=== PATIENT | female | born 1935 | race Caucasian/White ===

== ENCOUNTER 2019-05-29 15:08 | Inpatient (IN) ==
[2019-05-29 16:39] LABS: ALLEN TEST YES; BE 11.3 mmoll (-3.0-3.0); BLOOD TYPE ARTERIAL; HCO3-(ACT) 33.5 mmoll (20.0-26.0); METHB 1.2 % (0.0-1.5); O2(CT) 14.9 mL/dL (15.0-23.0); SAMPLE BLOOD; SAO2 89.5 % (95.0-100.0); THB 12.3 g/dL (11.5-17.4); pH(98.6) 7.35 (7.35-7.45)
[2019-05-29 16:41] LABS: PCO2(98.6) 72 mmHg (35-45)
[2019-05-29 16:42] LABS: MODALITY CANNULA; O2HB 86.4 % (95.0-99.0); PO2(98.6) 49 mmHg (60-100)
[2019-05-29] MEDS ORDERED: TYLENOL PO PRN (17:16)
[2019-05-29] MEDS ORDERED: SALINE LOCK IV FLUID XX ONE (17:16)
[2019-05-29] MEDS ORDERED: NORCO-10 PO PRN ×2 (17:18→17:48)
[2019-05-29] MEDS ORDERED: DUONEB (A & A) INH PRN (17:28)
[2019-05-29 17:37] LABS: BASO# 0.06 X1000 (0.0-0.2); BASO% 0.5 % (0.0-0.8); EOS# 0.21 X1000 (0.0-0.7); EOS% 1.6 % (0.0-10.0); HEMATOCRIT 40.2 % (37.0-47.0); HEMOGLOBIN 12.3 g/dL (12.0-16.0); IMM GRAN# 0.03 X1000 (0.0-0.04); IMM GRAN% 0.2 % (0.0-0.5); LYMPH# 0.86 X1000 (1.2-3.4); LYMPH% 6.5 % (20.5-51.1); MCH 29.4 PG (27-31); MCHC 30.6 g/dL (33-37); MCV 95.9 FL (81-99); MONO% 8.3 % (1.7-9.3); MPV 10.2 FL (7.4-10.4); NEUT# 11.06 X1000 (1.4-6.5); NEUT% 82.9 % (42.2-75.2); PLT 178 X1000 (130-400); RBC 4.19 XMIL (4.2-5.4); RDW 12.4 % (11.5-14.5); WBC 13.32 X1000 (4.8-10.8)
--- NOTE | 2019-05-29 17:40 | HISTORY AND PHYSICAL ---
She has recently lost her . He about a month ago. She has had a hard time. She states that for the last week or so she feels a little more short of breath, increased dyspnea with exertion. She has had some more swelling in her lower extremities. She denies chest pain or palpitation. Denies any fever, chills. She said she choked on some cornbread a couple days ago and since that time, feels like she is having more wheezing. She has underlying COPD and has some O2 at home. She was seen at Dr. Quintana's office and her O2 saturations were in the mid 70s and so admitting now for hypoxemia. PAST MEDICAL HISTORY: 1. COPD with chronic hypoxemia diagnosed back in 2004. She had a long stay in [facility]. At that time was vent dependent and had pneumonia. 2. Diabetes mellitus type 2. 3. Obesity. 4. 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 5. Sleep apnea on CPAP. 6. History of hypothyroidism, took PTU and had ablation procedure with radioactive iodine has done well. She is on thyroid supplement now. 7. Hypertension. 8. Status post cholecystectomy. 9. Status post hysterectomy. 10. Dyslipidemia. SOCIAL HISTORY: Recently lost her . Prior smoker years ago. She has not smoked for almost 20 years now. No history of alcohol use. FAMILY HISTORY: Positive for heart failure and diabetes mellitus. REVIEW OF SYSTEMS: General: No weight gain or loss. No fever or chills she knows of. HEENT: No change in visual or hearing acuity. Respiratory: Increased dyspnea on exertion and she said she thinks she had some paroxysmal nocturnal dyspnea the last couple nights, increased orthopnea, increased pedal edema. Cardiovascular: No chest pain or tachy palpitation. GI/: No gross hematuria, dysuria. Musculoskeletal/Neurologic: No focal complaints just general weakness. Endocrinologic hematologic: No significant history. PHYSICAL EXAM: Today temperature 98 degrees, pulse 80, respirations 19, blood pressure 131/73. Pupils are equal, round. LUNGS: Clear in all lung bocanegra. CARDIOVASCULAR: Regular rhythm and rate without murmur or S3. ABDOMEN: Soft. SKIN: Warm and dry. O2 saturation was 89%. This was on 5 L per nasal cannula. Weight 179 pounds, height 5 feet 3 inches. Pupils are equal and round. No distended neck veins appreciated. She is on nasal cannula. Conjunctiva pink. Sclerae clear. NECK: Was supple. No adenopathy cervical or supraclavicular. LUNGS: Are clear anterolateral and posterior. CARDIOVASCULAR: Regular rhythm and rate without murmur or S3. ABDOMEN: Soft, nondistended. No hepatosplenomegaly appreciated. Pedal edema but she has socks on both legs but pedal edema by report. Carotid, radial, femoral, pedal pulses 2+ and symmetrical. LAB: Blood gas, pH is 7.35, pCO2 72, PO2 is 49, O2 saturation was 89%. This is on nasal cannula 38%. HOME MEDICATIONS: She takes Xanax 0.5 mg at bedtime, calcium 500 mg p.o. daily, vitamin D3 2000 units daily, Lanoxin 250 mcg p.o. q.a.m., Cardizem CD 240 mg daily, Advair 250/50 one puff b.i.d., Lasix 80 mg p.o. daily and hydrocodone or Lortab 10 mg b.i.d. p.r.n., melatonin theanine tablet 9 mg at bedtime, multivitamin 1 a day, MiraLAX 1 packet every other day and Co-Q10 1 tablet daily. Rest of lab is pending. ASSESSMENT AND PLAN: 1. Underlying chronic obstructive pulmonary disease, history of chronic hypoxemia, presents now with hypercapnic hypoxemic respiratory failure. Increase her FiO2. She has had increased swelling in her lower extremities. We will put her on a monitor. Check an EKG. We will check cardiac enzymes make sure is not underlying cardiac ischemia. She has not complained of chest pain. She has recently lost her and quite a bit of stress. I think we will look at an echocardiogram to look at her left ventricular function and watch her blood pressure and afterload pretty carefully. Will check her thyroid functions as well, has a distant history of hyperthyroidism and it is very possible she could have hypothyroidism at the present time. Will check a digoxin level. 2. History of osteoarthritis. 3. History of sleep apnea. 4. Diabetes mellitus type 2. Will check pattern sugars. 5. History of hypertension. 6. I did note that she has had a history of an atrial myxoma, which they did not remove, course will check another echocardiogram at this time. cc: Dio Wall MD
[2019-05-29 17:45] LABS: AGAP 13; ALB/GLOB RATIO 1.4; ALBUMIN 4.1 g/dL (3.5-5.0); ALKALINE PHOSPHATASE 90 U/L (32-104); BUN 12 mg/dL (8-22); CALCIUM 9.2 mg/dL (8.8-10.2); CHLORIDE 92 mmol/L (98-107); COSMO 274; CREATININE 0.7 mg/dL (0.5-0.9); ESTIMATED GFR > 60; GLUCOSE 100 mg/dL (70-104); GOT 23 U/L (10-30); GPT 17 U/L (10-36); POTASSIUM 4.4 mmol/L (3.5-5.1); SODIUM 137 mmol/L (136-145); TCO2 32 mmol/L (25-35); TOTAL BILIRUBIN 0.38 mg/dL (0.20-1.00)
[2019-05-29] MEDS: DUONEB (A & A) INH SCH ×2 (19:25→23:02)
[2019-05-29] MEDS: ADVAIR 250/50 DISKUS INH SCH (19:25)
--- NOTE | 2019-05-29 21:32 | Diag Imaging Result Doc PS360 ---
EXAM: CHEST-2 VIEWS 05/29/2019 HISTORY: resp. failure TECHNIQUE: AP and lateral chest COMMENT: The inspiration is less optimal than on 11/08/2018. The left heart border is obscured and there is increased atelectatic appearing opacity in the lingula and right lower lobe. IMPRESSION: Atelectasis versus pneumonia in the lingula and right lower lobe. Electronically signed by Troy Kim 05/29/2019 9:30 PM
[2019-05-29] MEDS: ROCEPHIN 1 GM in NS 50 ML IV SCH (21:36)
[2019-05-29] MEDS: MUCINEX PO SCH (21:37)
[2019-05-29] MEDS: XANAX PO SCH (21:38)
[2019-05-29] MEDS: LASIX IV SCH (21:38)
[2019-05-29] MEDS: MELATONIN PO SCH (21:38)
[2019-05-29 23:03] LABS: URINE SOURCE CATH
[2019-05-29 23:28] LABS: BILIRUBIN URINE NEGATIVE (NEGATIVE); BLOOD URINE NEGATIVE (NEGATIVE); COLOR YELLOW; GLUCOSE URINE NEGATIVE (NEGATIVE); KETONE URINE NEGATIVE (NEGATIVE); LEUKOCYTES URINE NEGATIVE (NEGATIVE); NITRITE URINE NEGATIVE (NEGATIVE); PROTEIN URINE TRACE mg/dL (NEGATIVE); TURBIDITY URINE CLEAR (CLEAR); UROBILINOGEN URINE NORMAL (NORMAL)
[2019-05-29 23:30] LABS: UR EPITHELIAL CELLS <10 /HPF (<10); URINE BACTERIA NEGATIVE /HPF; URINE RBC <10 /HPF (<10); URINE WBC <10 /HPF (<10)
[2019-05-30] MEDS: DUONEB (A & A) INH SCH ×6 (03:39→23:26)
[2019-05-30] MEDS: LASIX IV SCH ×2 (04:55→16:21)
[2019-05-30 05:17] LABS: ALLEN TEST YES; BE 14.5 mmoll (-3.0-3.0); BLOOD TYPE ARTERIAL; METHB 0.5 % (0.0-1.5); MODALITY CANNULA; O2(CT) 14.3 mL/dL (15.0-23.0); SAMPLE BLOOD; SAO2 90.5 % (95.0-100.0); THB 11.6 g/dL (11.5-17.4); pH(98.6) 7.39 (7.35-7.45)
[2019-05-30 05:20] LABS: PCO2(98.6) 70 mmHg (35-45); PO2(98.6) 49 mmHg (60-100)
[2019-05-30 05:21] LABS: O2HB 87.9 % (95.0-99.0)
[2019-05-30] MEDS: PROTONIX PO SCH (06:05)
[2019-05-30 07:06] LABS: AGAP 12; BUN 11 mg/dL (8-22); CHLORIDE 90 mmol/L (98-107); COSMO 278; CREATININE 0.7 mg/dL (0.5-0.9); ESTIMATED GFR > 60; GLUCOSE 114 mg/dL (70-104); POTASSIUM 3.9 mmol/L (3.5-5.1); SODIUM 139 mmol/L (136-145); TCO2 37 mmol/L (25-35)
[2019-05-30 07:07] LABS: ALB/GLOB RATIO 1.5; ALBUMIN 3.8 g/dL (3.5-5.0); ALKALINE PHOSPHATASE 80 U/L (32-104); CALCIUM 8.8 mg/dL (8.8-10.2); GOT 19 U/L (10-30); GPT 14 U/L (10-36); TOTAL BILIRUBIN 0.38 mg/dL (0.20-1.00); TOTAL PROTEIN 6.3 g/dL (6.3-8.3)
[2019-05-30 08:02] LABS: FREE T4 0.97 ng/dL (0.93-1.70)
[2019-05-30] MEDS: ADVAIR 250/50 DISKUS INH SCH ×2 (08:11→19:41)
[2019-05-30 08:14] LABS: BASO# 0.06 X1000 (0.0-0.2); BASO% 0.7 % (0.0-0.8); EOS# 0.34 X1000 (0.0-0.7); EOS% 3.8 % (0.0-10.0); HEMATOCRIT 37.3 % (37.0-47.0); HEMOGLOBIN 11.5 g/dL (12.0-16.0); IMM GRAN# 0.02 X1000 (0.0-0.04); IMM GRAN% 0.2 % (0.0-0.5); LYMPH# 1.07 X1000 (1.2-3.4); LYMPH% 11.9 % (20.5-51.1); MCH 29.7 PG (27-31); MCHC 30.8 g/dL (33-37); MCV 96.4 FL (81-99); MONO# 1.04 X1000 (0.11-0.59); MONO% 11.6 % (1.7-9.3); MPV 10.2 FL (7.4-10.4); NEUT# 6.47 X1000 (1.4-6.5); NEUT% 71.8 % (42.2-75.2); PLT 167 X1000 (130-400); RBC 3.87 XMIL (4.2-5.4); RDW 12.1 % (11.5-14.5)
[2019-05-30] MEDS: CENTRUM SILVER PO SCH (09:42)
[2019-05-30] MEDS: CARDIZEM CD PO SCH (09:42)
[2019-05-30] MEDS: VITAMIN D PO SCH (09:42)
[2019-05-30] MEDS: MUCINEX PO SCH ×2 (09:43→22:19)
[2019-05-30] MEDS: COENZYME Q10 PO SCH (09:43)
[2019-05-30] MEDS: LANOXIN PO SCH (09:43)
--- NOTE | 2019-05-30 10:53 | ECHO REPORT ---
ORDER DATE: 05/29/2019 INTERPRETING PHYSICIAN: Dr. Mario Peck. ECHOCARDIOGRAPHIC MEASUREMENTS: 1. Interventricular septum 1.1. 2. Left ventricular posterior wall 1.1. 3. Diastolic diameter 5.1. 4. Left atrium 5.9. 5. Aorta 3.4. SUMMARY OF THE 2-DIMENSIONAL IMAGIN. There is biatrial enlargement. 2. Right atrium, there is a 2 cm mass noted towards the inflow of the inferior vena cava. Cannot rule out a myxoma. Would recommend transesophageal echocardiogram. 3. Aortic valve leaflets are trileaflet, sclerosed. 4. Mitral valve was normal. There is mitral annular calcification. 5. Tricuspid valve was normal. There is iomo-ey-mpyheujt mitral regurgitation. There is mild tricuspid regurgitation. Peak velocity across the tricuspid valve was 3 m/sec. 6. Pulmonary artery systolic pressure of 50 mmHg. 7. Peak velocity across the aortic valve was less than 2 m/sec. There is no aortic stenosis. 8. There is no pericardial effusion. 9. Normal left ventricular cavity size EF 65%, atrial fibrillation noted. cc: MD Dio Gonzalez MD MTDD
[2019-05-30] MEDS: MIRALAX PO SCH (12:50)
[2019-05-30] MEDS ORDERED: MILK OF MAGNESIA PO ONE (15:50)
[2019-05-30] MEDS ORDERED: DULCOLAX PR PRN (15:50)
--- NOTE | 2019-05-30 16:15 | PROGRESS NOTE ---
DATE: 05/30/2019 SUBJECTIVE: Ms. Sauceda is feeling better. Feels like her breathing is doing better and more comfortable. She has not had a bowel movement. OBJECTIVE: Vital Signs: Temperature 97.9 degrees, pulse 69, respirations 19, blood pressure 115/60. Pupils are equal and round. Lungs: Clear in all lung bocanegra. Cardiovascular: Regular rhythm and rate without murmur or S3. Urine output is 1600 mL. DIAGNOSTIC DATA: She had an echocardiogram done. In the right atrium, there is a 2 cm mass noted towards inflow of the inferior vena cava and appears to be consistent with a myxoma. This has been seen before. Mitral annular calcification and she appears to have normal left ventricular size ejection fraction 65%. So chest x-ray from yesterday, atelectasis versus pneumonia and lingular in the right lower lobe. ASSESSMENT AND PLAN: 1. We will get another chest x-ray tomorrow. Volume status looks good. I do not see any sign of infection. 2. She has an atrial myxoma. Aware. No significant valvular or left ventricular dysfunction. 3. History of sleep apnea. 4. Diabetes mellitus type 2. 5. Hypertension, CURRENT ORDERS: I do not see any change. She is complaining of constipation so I will get her something for her bowels and we will check electrolytes and renal function tomorrow. cc: Dio Wall MD
[2019-05-30] MEDS: ROCEPHIN 1 GM in NS 50 ML IV SCH (16:30)
--- NOTE | 2019-05-30 19:33 | PULMONOLOGY CONSULTATION ---
DATE: 05/30/2019 REASON FOR CONSULTATION: Respiratory failure. HISTORY OF PRESENT ILLNESS: Ms. Sauceda is an 83-year-old white female with COPD, chronic hypoxemic respiratory failure, and other comorbidities outlined below, who reports the day before admission she was eating cornbread and had a choking with aspiration event. The patient reports she had multiple episodes of coughing, which produced food particles. She was evaluated the following day and her oxygen saturation was in the 70s despite supplemental oxygen. PAST MEDICAL HISTORY/PROBLEM LIST: 1. Chronic obstructive pulmonary disease. 2. Chronic hypoxemic respiratory failure. 3. Atrial myxoma without surgical intervention. 4. Obesity. 5. Diabetes mellitus. 6. History of hyperthyroidism following radioactive iodine treatment. 7. Status post cholecystectomy. 8. Status post hysterectomy. 9. Osteoarthritis. 10. Status post appendectomy. 11. Status post x2. 12. History of skin cancer. SOCIAL HISTORY: Prior tobacco use. She is a and has recently lost her . FAMILY HISTORY: Noncontributory to current presentation. REVIEW OF SYSTEMS: Notable for increased shortness of breath, increased cough with sputum production, increased peripheral edema. PHYSICAL EXAMINATION: General: Reveals a well-developed, well-nourished female, who appears her stated age, in no distress. Vital signs: BP 115/60, heart rate 69, respiratory rate 19, oxygen saturation 98% on 4 L per nasal cannula. HEENT: Pupils are equal and reactive. Oropharynx appears clear. Neck: Supple. Chest: Reveals crackles in both lung bases. Cardiac Exam: S1- S2. Abdomen: Soft. Extremities: Reveal 1 to 2+ peripheral edema. LABORATORIES: Arterial blood gas on 4.5 L reveals pH 7.39, pCO2 of 70, PO2 of 49. Chest x-ray reveals infiltrates in the lingula and the right lower lobe. IMPRESSION: An 83-year-old with chronic obstructive pulmonary disease who presents with 1. Aspiration pneumonia. 2. Acute hypoxemic respiratory failure. 3. Chronic hypercapnic respiratory failure. 4. Peripheral edema. RECOMMENDATIONS: 1. Continue current antibiotics. 2. Continue bronchial hygiene as you are doing. 3. Agree with echocardiogram evaluation given history of non-resected atrial myxoma. 4. Consider diuresis with lower extremity edema. 5. Prognosis is guarded, but appears to be improving. cc: MD Dio Solomon MD [facility]
[2019-05-30] MEDS: MELATONIN PO SCH (22:19)
[2019-05-31] MEDS: XANAX PO SCH ×2 (03:16→20:54)
[2019-05-31] MEDS: DUONEB (A & A) INH SCH ×6 (03:34→23:15)
[2019-05-31] MEDS: LASIX IV SCH ×2 (04:57→18:23)
[2019-05-31] MEDS: PROTONIX PO SCH (06:00)
[2019-05-31 06:09] LABS: BASO% 0.5 % (0.0-0.8); EOS% 2.5 % (0.0-10.0); HEMATOCRIT 38.6 % (37.0-47.0); HEMOGLOBIN 12.4 g/dL (12.0-16.0); IMM GRAN% 0.3 % (0.0-0.5); LYMPH% 15.7 % (20.5-51.1); MCHC 32.1 g/dL (33-37); MCV 93.5 FL (81-99); MONO% 14.2 % (1.7-9.3); MPV 10.3 FL (7.4-10.4); NEUT% 66.8 % (42.2-75.2); PLT 179 X1000 (130-400); RBC 4.13 XMIL (4.2-5.4); RDW 12.3 % (11.5-14.5); WBC 9.89 X1000 (4.8-10.8)
[2019-05-31 06:10] LABS: BASO# 0.05 X1000 (0.0-0.2); EOS# 0.25 X1000 (0.0-0.7); IMM GRAN# 0.03 X1000 (0.0-0.04); LYMPH# 1.55 X1000 (1.2-3.4); NEUT# 6.61 X1000 (1.4-6.5)
[2019-05-31 06:13] LABS: BE 17.8 mmoll (-3.0-3.0); BLOOD TYPE ARTERIAL; HCO3-(ACT) 38.6 mmoll (20.0-26.0); METHB 1.3 % (0.0-1.5); O2(CT) 16.2 mL/dL (15.0-23.0); PO2(98.6) 54 mmHg (60-100); SAMPLE BLOOD; SAO2 93.3 % (95.0-100.0); THB 12.9 g/dL (11.5-17.4); pH(98.6) 7.45 (7.35-7.45)
[2019-05-31 06:14] LABS: ALLEN TEST YES
[2019-05-31 06:18] LABS: MODALITY CANNULA; O2HB 89.6 % (95.0-99.0); PCO2(98.6) 65 mmHg (35-45)
[2019-05-31 06:30] LABS: ESTIMATED GFR > 60
[2019-05-31 06:39] LABS: AGAP 10; BUN 14 mg/dL (8-22); CALCIUM 9.5 mg/dL (8.8-10.2); CHLORIDE 86 mmol/L (98-107); COSMO 269; CREATININE 0.8 mg/dL (0.5-0.9); GLUCOSE 108 mg/dL (70-104); MAGNESIUM 1.8 mg/dL (1.5-2.7); POTASSIUM 4.1 mmol/L (3.5-5.1); SODIUM 134 mmol/L (136-145); TCO2 38 mmol/L (25-35)
[2019-05-31] MEDS: ADVAIR 250/50 DISKUS INH SCH ×2 (07:16→19:43)
[2019-05-31] MEDS ORDERED: MIRALAX PO SCH (09:00)
[2019-05-31] MEDS ORDERED: SODIUM CHLORIDE 0.9% 10 ML ONE (09:35)
[2019-05-31] MEDS: CARDIZEM CD PO SCH (09:52)
[2019-05-31] MEDS: VITAMIN D PO SCH (09:52)
[2019-05-31] MEDS: COENZYME Q10 PO SCH (09:52)
[2019-05-31] MEDS: MUCINEX PO SCH ×2 (09:52→20:54)
[2019-05-31] MEDS: LANOXIN PO SCH (09:52)
[2019-05-31] MEDS: CENTRUM SILVER PO SCH (09:52)
--- NOTE | 2019-05-31 10:51 | Diag Imaging Result Doc PS360 ---
EXAM: CHEST-2 VIEWS 05/31/2019 HISTORY: hypoxemia TECHNIQUE: AP and sitting lateral COMMENT: There is marked kyphosis. There is a small amount of pleural fluid bilaterally which is demonstrated primarily on the lateral view. There is cardiomegaly. There are calcified nodes on the left and a calcified granuloma laterally in the lingula. The left base is clearer than on the previous examination of 05/29/2019. There is a small focus of platelike atelectasis in the right costophrenic angle. The lungs are generally better expanded. IMPRESSION: Cardiomegaly. Bilateral pleural effusions. Improved basilar atelectasis. Electronically signed by Troy Kim 05/31/2019 10:49 AM
--- NOTE | 2019-05-31 13:57 | PROGRESS NOTE ---
DATE: 05/31/2019 SUBJECTIVE: Ms. Sauceda was getting her hair done. She is breathing better. She feels more comfortable. OBJECTIVE: Temperature 98.1 degrees, pulse 89, respirations 21, blood pressure 108/40. Pupils are equal and round. Lungs are clear in all lung bocanegra. Cardiovascular Examination: Regular rhythm and rate without murmur or S3. Urine output is 6200 mL. Blood sugar 118, 104, 115. Chest x-ray, cardiomegaly, bilateral pleural effusions, improved bibasilar atelectasis. ASSESSMENT AND PLAN: 1. Aspiration pneumonia suspected. She has acute hypoxemic respiratory failure, chronic hypercapnic respiratory failure, peripheral edema. Continue present antibiotics. Continue bronchial hygiene. She is doing better. 2. Echocardiogram evaluation. 3. A history of non-resected atrial myxoma. 4. Diuresis, lower extremity edema. 5. Prognosis is guarded. Appears to be improving. She looks much better today. I think her gas exchange is improved. Continue present therapy. cc: Dio Wall MD
[2019-05-31] MEDS: ROCEPHIN 1 GM in NS 50 ML IV SCH (18:23)
[2019-05-31] MEDS: MELATONIN PO SCH (20:54)
[2019-06-01] MEDS: DUONEB (A & A) INH SCH ×6 (03:37→23:21)
[2019-06-01] MEDS: LASIX IV SCH ×2 (04:36→16:41)
[2019-06-01] MEDS: PROTONIX PO SCH (06:36)
[2019-06-01] MEDS: ADVAIR 250/50 DISKUS INH SCH ×2 (07:06→19:51)
--- NOTE | 2019-06-01 09:14 | PROGRESS NOTE ---
DATE: 06/01/2019 SUBJECTIVE: Ms. Sauceda is breathing better. She feels better overall. She still has her Mckenzie catheter in. She is coughing but the cough seems to be loose. OBJECTIVE: Temperature 97.4 degrees, pulse 92, respirations 18, blood pressure 128/62. Pupils are equal and round. Lungs are clear in all lung bocanegra. Cardiovascular Examination: Regular rhythm and rate without murmur or S3. Urine output is 3900 mL. Blood sugar 115, 125, 109. ASSESSMENT AND PLAN: 1. Aspiration pneumonia suspected with some pulmonary venous hypertension, acute hypoxemic respiratory failure, chronic hypercapnic respiratory failure. Continue present antibiotics, incentive spirometry. She is on DuoNebs, fluticasone, steroid inhaler. We have her on ceftriaxone 1 g every 24 hours. 2. Echocardiogram was done on the . Pulmonary arterial pressure appeared about 50 mmHg. Valves appeared normal and left ventricular ejection fraction of 65%. 3. Please note on my last note, she does not have an atrial myxoma. That was put in error. 4. Diuresis. She had some lower extremity edema. She has some stockings in place. She is improving. I am going to take her Mckenzie catheter out. REVIEW OF HER ORDERS: I do not see any change at this point. There is a possibility that she could go home tomorrow. We will see what Dr. Quintana says. She has no growth from her blood cultures. Sputum culture is negative. White count from yesterday 9890, hematocrit 38, platelet count 179,000. Sodium 134, potassium 4.1, chloride 86, BUN 14, creatinine 0.8. Blood sugars 115, 125, 135, 109. cc: Dio Wall MD
[2019-06-01] MEDS: MUCINEX PO SCH ×2 (09:35→21:01)
[2019-06-01] MEDS: MIRALAX PO SCH (09:35)
[2019-06-01] MEDS: VITAMIN D PO SCH (09:35)
[2019-06-01] MEDS: COENZYME Q10 PO SCH (09:35)
[2019-06-01] MEDS: CARDIZEM CD PO SCH (09:36)
[2019-06-01] MEDS: LANOXIN PO SCH (09:36)
[2019-06-01] MEDS: CENTRUM SILVER PO SCH (09:36)
[2019-06-01] MEDS: ROCEPHIN 1 GM in NS 50 ML IV SCH (16:41)
[2019-06-01] MEDS: MELATONIN PO SCH (21:01)
[2019-06-01] MEDS: XANAX PO SCH (21:02)
--- NOTE | 2019-06-01 21:59 | PULMONOLOGY PROGRESS NOTE ---
DATE: 06/01/2019 SUBJECTIVE: The patient is awake, alert, and sitting in a chair. She reports she has had a good day. She has had no significant dyspnea today. She reports some lower extremity edema while sitting upright in the chair. OBJECTIVE: Vital Signs: Blood pressure 125/80, heart rate 79, respiratory rate 18, oxygen saturation 100% on nasal cannula. HEENT: Pupils are equal and reactive. Oropharynx appears clear. Neck: Supple. Chest: Occasional wheeze bilaterally with bilateral rhonchi. Cardiac: S1-S2. Abdomen: Obese and soft. Extremities: Trace to 1+ peripheral edema. LABORATORIES: No new laboratory data. IMPRESSION: An 83-year-old with: 1. Aspiration pneumonia. 2. Acute on chronic hypoxemic respiratory failure. 3. Chronic hypercapnic respiratory failure. 4. Chronic lower extremity edema. DISCUSSION: An 83-year-old with problems outlined above. She continues to improve. If she looks well on Wednesday morning, I believe she could be discharged home. PLAN: 1. Continue with current antibiotics. 2. Wean oxygen as tolerated. 3. Anticipate discharge home soon. cc: MD Dio Solomon MD
[2019-06-02] MEDS: DUONEB (A & A) INH SCH ×2 (03:06→08:00)
[2019-06-02] MEDS: LASIX IV SCH (04:18)
[2019-06-02] MEDS: PROTONIX PO SCH (06:20)
[2019-06-02 07:34] VITALS: BP 110/63
--- NOTE | 2019-06-02 07:35 | Diag Imaging Result Doc PS360 ---
CHEST-2 VIEWS - 06/02/2019 INDICATION: abnormal exam COMPARISON: 05/31/2019 FINDINGS: There is a trace right and small left pleural effusion new from prior. There is slight worsening left lower lobe infiltrate. Stable cardiomegaly. IMPRESSION: New pleural effusions. Slight worsening left lower lobe infiltrate. Stable cardiomegaly. Electronically signed by Jas Lovelace 06/02/2019 7:33 AM
[2019-06-02] MEDS: ADVAIR 250/50 DISKUS INH SCH (08:01)
--- NOTE | 2019-06-02 09:18 | DISCHARGE SUMMARY ---
ADMISSION DATE: 05/29/2019 DISCHARGE DATE: 06/02/2019 HISTORY: This is an 83-year-old. Her about a month ago and she came in and saw Dr. Quintana was complaining of a little more short of breath, more dyspnea on exertion, had some swelling in her lower extremities. Denied any chest pain or palpitation. Denied any fever or chills. She had an episode where she choked on some cornbread and felt like she had a little bit aspiration and may have just tipped her over. She had high hypoxia. O2 saturations were and they were in the high 70s in his office. PAST MEDICAL HISTORY: 1. Chronic obstructive pulmonary disease, chronic hypoxemic, diagnosed in 2004 long stay at [facility]. 2. Diabetes mellitus type 2. 3. Obesity. 4. History of atrial myxoma a high surgical risk. We repeated an echocardiogram, which she is here. She still has the atrial myxoma. 5. Sleep apnea on CPAP. 6. History of hypothyroidism, took PTU and had ablation procedure appears to be euthyroid. 7. Hypertension. 8. Status post cholecystectomy. 9. Status post hysterectomy. 10. Dyslipidemia. ADMISSION DIAGNOSES: 1. Underlying chronic obstructive pulmonary disease, history of chronic hypoxemia. Suspect some aspiration and had some hypercapnic hypoxemic respiratory failure, put on supplementary O2 and we treated empirically with some antibiotics and bronchodilators. Also had some pulmonary venous hypertension so I have diuresed her some and she seemed to improve. 2. History of osteoarthritis. 3. History of sleep apnea. 4. Diabetes mellitus type 2. 5. History of hypertension. 6. History of atrial myxoma, which is inoperable. DISPOSITION: We will discharge her home. She takes Xanax 0.5 mg at bedtime. I have her on guaifenesin ER 1200 mg q.12, vitamin D 2000 units a day, digoxin 250 mcg p.o. daily, Cardizem CD 240 mg daily, fluticasone salmeterol 1 puff b.i.d. I will put her on Lasix 40 mg p.o. q.a.m., melatonin 9 mg at bedtime, multivitamin 1 a day, Protonix 40 mg a day, MiraLAX 17 g. I think she takes that every other day, and Co enzyme 100 mg daily. FOLLOWUP: I will see her back in my office in 2 weeks. She will go back to 2 L O2. She also has hydrocodone she can take for pain 10 mg p.o. b.i.d. p.r.n. cc: Dio Wall MD
[2019-06-02] MEDS: CARDIZEM CD PO SCH (09:45)
[2019-06-02] MEDS: CENTRUM SILVER PO SCH (09:45)
[2019-06-02] MEDS: VITAMIN D PO SCH (09:45)
[2019-06-02] MEDS: LANOXIN PO SCH (09:46)
[2019-06-02] MEDS: MUCINEX PO SCH (09:46)
[2019-06-02] MEDS: COENZYME Q10 PO SCH (09:46)
== END 2019-06-02 11:35 | disposition home or self-care (01) | DRG 189 ==
LOC: DIRADM 15:08 → 3N 15:24
PROVIDERS: ADMIT Emergency Medicine; ATTEND Emergency Medicine